=== PATIENT | female | born 1950 | race Caucasian/White ===

== ENCOUNTER 2019-12-18 03:28 | Emergency (ER) | payer SELFPAY ==
[~2019-12-18] VITALS: Ht 175.3 cm; Wt 81.6 kg
--- NOTE | 2019-12-18 03:34 | NUR ---
PT BIBSELF C/O LOWER BACK PAIN RADIATING TO LEFT LEG 1 DAY, WORSE SINCE 2AM, HX SCIATICA. DENIES ANY URINARY PROBLEMS. PT AOX4 RR EVEN AND UNLABORED. NO NVD AT THIS TIME. PT CONNECTED TO MONITOR, WAITING FOR MD KHALIL.
--- NOTE | 2019-12-18 03:44 | NUR ---
DR. MOON AT BEDSIDE FOR EVAL.
[2019-12-18] MEDS ORDERED: KETOROLAC TROMETHAMINE INJ 60 MG/2 ML VIAL IM ONE (03:48)
[2019-12-18] MEDS: KETOROLAC TROMETHAMINE INJ 60 MG/2 ML VIAL IM ONE (03:53)
[2019-12-18 04:03] VITALS: BP 137/74
== END 2019-12-18 04:23 | disposition home or self-care (01) ==
LOC: ER 03:28
DX: M54.42 Lumbago with sciatica, left side (principal); Z98.890 Other specified postprocedural states
CPT/HCPCS: 96372; 99283; J1885